=== PATIENT | female | born 1950 | race Caucasian/White ===

== ENCOUNTER 2022-09-08 21:22 | Inpatient (IN) ==
[2022-09-08] MEDS ORDERED: SODIUM CHLORIDE 0.9% 1,000 ML IV STA (21:43)
[2022-09-08 21:52] LABS: Basophils % 0.2 % (0.0-0.8); Hemoglobin 12.9 GM/DL (12.0-16.0); Immature Granulocytes % 0.5 %; Immature Granulocytes Absolute 0.09 #; Lymphocytes # 0.7 10*3/uL (1.4-4.0); Mean Corpuscular HGB Conc 33.1 GM/DL (32-36); Mean Corpuscular Volume 101.6 FL (87-102); Mean Platelet Volume 12.3 FL (9.6-12.0); Monocytes # 0.8 10*3/uL (0.11-0.8); Monocytes % 4.9 % (1.7-12.7); Neutrophils % 90.4 % (38.7-73.9); Platelet Count 142 T/CUMM (130-400); Red Blood Count 3.84 MC/CUMM (3.8-5.5); Red Cell Distribution Width 12.4 % (9.3-17.3); White Blood Count 16.4 T/CUMM (4-12)
[2022-09-08] MEDS ORDERED: ACETAMINOPHEN 325 MG SUPP RECTAL STA (22:00)
[2022-09-08] MEDS ORDERED: ACETAMINOPHEN 650 MG SUPP RECTAL STA (22:02)
[2022-09-08] MEDS ORDERED: DOXYCYCLINE HYCLATE INJ 100 MG in SODIUM CHLORIDE 0.9% 100 ML IV STA (22:03)
[2022-09-08 22:13] LABS: Albumin 3.6 G/DL (3.4-5.0); Band Neutrophils 1 % (0-10); Bilirubin,Total 0.8 MG/DL (0.20-1.00); Calcium 9.8 MG/DL (8.5-10.1); Lymphocytes 8 % (20-55); Osmolality,Calculated 296.7 MOS/KG (273-304); Potassium 3.9 MMOL/L (3.5-5.1); Total Cells Counted 100; Total Protein 7.4 G/DL (6.4-8.2)
[2022-09-08 22:14] LABS: Anisocytosis Slight; Macrocytosis Slight; Platelet Estimate Adequate
[2022-09-08 23:06] LABS: RBC,Urine 2 /HPF (0-4); Squamous Epithelial Cell,Urine Moderate /HPF (0-10)
[2022-09-08 23:09] LABS: Glucose,Urine (UA) Negative (Negative); Protein,Urine 100 mg/dL (Negative); Urine Appearance Clear (Clear); Urine Color Yellow (Yellow); Urine pH 7.5 (4.5-8.0)
[2022-09-08 23:10] LABS: Bilirubin,Urine Negative (Negative); Blood, Urine Negative (Negative); Ketones,Urine 15 mg/dL (Negative); Nitrite,Urine Negative (Negative); Urine Urobilinogen 0.2 eU/dL (<2.0)
[2022-09-08] MEDS ORDERED: hydrALAZINE 20 MG/1 ML VIAL IV PRN (23:40)
[2022-09-08] MEDS ORDERED: ONDANSETRON 4 MG/2 ML VIAL IV PRN (23:40)
[2022-09-08] MEDS ORDERED: NICOTINE 21 MG/24 HR PATCH TRANSDERM PRN (23:40)
[2022-09-08 23:56] LABS: Arterial Base Excess iSTAT 1 MMOL/L (-2.5-2.5); Arterial Bicarbonate iSTAT 23.1 MMOL/L (20-26); Arterial O2 Saturation iSTAT 91 % (95-100); Arterial PCO2 iSTAT 28 MM HG (35-48); Arterial PO2 iSTAT 54 MM HG (80-95); Arterial Total CO2 iSTAT 24 MMO/L (23-27); Arterial pH iSTAT 7.529 (7.35-7.45)
[2022-09-09] MEDS: ALBUTEROL/IPRATROPIUM 3 ML NEB RESP TX SCH ×7 (00:05→22:26)
[2022-09-09] MEDS ORDERED: ACETAMINOPHEN 650 MG SUPP RECTAL PRN (00:24)
[2022-09-09] MEDS: CLINDAMYCIN INJ 600 MG/50 ML PREMIX IV SCH ×3 (01:45→16:51)
[2022-09-09] MEDS: DEXT 5% NACL 0.45% KCL 20 MEQ 20 MEQ/1,000 ML BAG IV SCH ×2 (01:45→08:02)
[2022-09-09] MEDS ORDERED: KETOROLAC 30 MG/1 ML VIAL IV ONE (02:55)
[2022-09-09] MEDS: SODIUM CHLORIDE 0.9% 1,000 ML IV SCH ×2 (04:10→20:36)
[2022-09-09] MEDS ORDERED: SODIUM CHLORIDE 0.9% 500 ML IV ONE (05:00)
[2022-09-09 05:46] LABS: Basophils % 0.1 % (0.0-0.8); Hematocrit 34.7 VOL% (35.7-47.0); Hemoglobin 11.1 GM/DL (12.0-16.0); Immature Granulocytes % 0.5 %; Immature Granulocytes Absolute 0.05 #; Lymphocytes # 0.4 10*3/uL (1.4-4.0); Lymphocytes % 4.1 % (21.3-54.2); Mean Corpuscular Volume 106.8 FL (87-102); Mean Platelet Volume 12.6 FL (9.6-12.0); Monocytes # 0.5 10*3/uL (0.11-0.8); Monocytes % 5.1 % (1.7-12.7); Neutrophils % 90.2 % (38.7-73.9); Platelet Count 111 T/CUMM (130-400); Red Blood Count 3.25 MC/CUMM (3.8-5.5); Red Cell Distribution Width 12.4 % (9.3-17.3); White Blood Count 10.2 T/CUMM (4-12)
[2022-09-09 06:10] LABS: Lymphocytes 5 % (20-55); Total Cells Counted 100
[2022-09-09 06:11] LABS: Calcium 8.6 MG/DL (8.5-10.1); Osmolality,Calculated 301.4 MOS/KG (273-304); Potassium 3.3 MMOL/L (3.5-5.1)
[2022-09-09] MEDS: POTASSIUM CHLORIDE RIDER 10 MEQ/100 ML PREMIX IV PRN ×4 (06:45→10:17)
[2022-09-09] MEDS: PANTOPRAZOLE 40 MG VIAL IV SCH (08:35)
[2022-09-09] MEDS: HEPARIN 5,000 UNIT/1 ML VIAL SUBCUT SCH ×2 (08:36→20:35)
[2022-09-09] MEDS: IBUPROFEN 100 MG/5 ML UDCUP PO PRN (10:15)
[2022-09-09] MEDS ORDERED: DANTROLENE 20 MG VIAL IV ONE (10:16)
[2022-09-09] MEDS: CYCLOBENZAPRINE 10 MG TABLET PER TUBE SCH ×2 (10:42→20:35)
[2022-09-09] MEDS: traZODone 50 MG TABLET PER TUBE SCH ×2 (10:42→20:35)
[2022-09-09] MEDS: STALEVO PER TUBE SCH ×4 (12:06→20:35)
[2022-09-09] MEDS: OXcarbazepine 300 MG TABLET PER TUBE SCH ×2 (12:06→20:35)
[2022-09-09] MEDS: CARBIDOPA/LEVODOPA 25-100 MG TABLET PO SCH ×3 (12:09→20:35)
[2022-09-09] MEDS: DOXYCYCLINE HYCLATE INJ 100 MG in SODIUM CHLORIDE 0.9% 100 ML IV SCH (15:28)
[2022-09-10] MEDS: CLINDAMYCIN INJ 600 MG/50 ML PREMIX IV SCH ×3 (00:06→18:59)
[2022-09-10] MEDS: ALBUTEROL/IPRATROPIUM 3 ML NEB RESP TX SCH ×6 (02:56→23:55)
[2022-09-10] MEDS: DOXYCYCLINE HYCLATE INJ 100 MG in SODIUM CHLORIDE 0.9% 100 ML IV SCH ×2 (03:00→17:10)
[2022-09-10 04:30] LABS: Basophils % 0.2 % (0.0-0.8); Hematocrit 33.4 VOL% (35.7-47.0); Hemoglobin 10.7 GM/DL (12.0-16.0); Immature Granulocytes % 0.4 %; Immature Granulocytes Absolute 0.03 #; Lymphocytes # 0.7 10*3/uL (1.4-4.0); Lymphocytes % 8.9 % (21.3-54.2); Mean Corpuscular Volume 108.1 FL (87-102); Mean Platelet Volume 12.4 FL (9.6-12.0); Monocytes # 0.5 10*3/uL (0.11-0.8); Monocytes % 6.5 % (1.7-12.7); Platelet Count 93 T/CUMM (130-400); Red Blood Count 3.09 MC/CUMM (3.8-5.5); Red Cell Distribution Width 12.5 % (9.3-17.3); White Blood Count 8.3 T/CUMM (4-12)
[2022-09-10 04:41] LABS: Calcium 8.6 MG/DL (8.5-10.1); Osmolality,Calculated 298.4 MOS/KG (273-304)
[2022-09-10] MEDS: IBUPROFEN 100 MG/5 ML UDCUP PO PRN (05:45)
[2022-09-10] MEDS ORDERED: DANTROLENE 20 MG VIAL IV ONE ×2 (06:08→06:45)
[2022-09-10] MEDS: PANTOPRAZOLE 40 MG VIAL IV SCH (09:00)
[2022-09-10] MEDS: CARBIDOPA/LEVODOPA 25-100 MG TABLET PO SCH ×4 (09:01→20:23)
[2022-09-10] MEDS: OXcarbazepine 300 MG TABLET PER TUBE SCH ×2 (09:01→20:23)
[2022-09-10] MEDS: CYCLOBENZAPRINE 10 MG TABLET PER TUBE SCH ×2 (09:01→20:23)
[2022-09-10] MEDS: traZODone 50 MG TABLET PER TUBE SCH ×2 (09:01→20:23)
[2022-09-10] MEDS: HEPARIN 5,000 UNIT/1 ML VIAL SUBCUT SCH ×2 (09:02→20:23)
[2022-09-10] MEDS: SODIUM CHLORIDE 0.9% 1,000 ML IV SCH ×4 (09:25→19:41)
[2022-09-10] MEDS ORDERED: MEPERIDINE 50 MG/1 ML VIAL IV ONE (19:45)
[2022-09-11] MEDS: MORPHINE 2 MG/1 ML SYRINGE IV PRN ×8 (00:05→20:13)
[2022-09-11] MEDS: CLINDAMYCIN INJ 600 MG/50 ML PREMIX IV SCH ×3 (00:11→17:35)
[2022-09-11] MEDS ORDERED: LORazepam 2 MG/1 ML VIAL ONE (03:00)
[2022-09-11] MEDS ORDERED: LORazepam 2 MG/1 ML VIAL IV ONE (03:15)
[2022-09-11] MEDS: ALBUTEROL/IPRATROPIUM 3 ML NEB RESP TX SCH ×5 (03:28→19:10)
[2022-09-11] MEDS: DOXYCYCLINE HYCLATE INJ 100 MG in SODIUM CHLORIDE 0.9% 100 ML IV SCH ×2 (03:39→16:30)
[2022-09-11 04:23] LABS: Basophils % 0.2 % (0.0-0.8); Hematocrit 39.6 VOL% (35.7-47.0); Hemoglobin 12.2 GM/DL (12.0-16.0); Immature Granulocytes % 0.9 %; Lymphocytes # 0.4 10*3/uL (1.4-4.0); Lymphocytes % 3.8 % (21.3-54.2); Mean Corpuscular HGB Conc 30.8 GM/DL (32-36); Mean Corpuscular Volume 108.8 FL (87-102); Mean Platelet Volume 12.9 FL (9.6-12.0); Monocytes # 0.5 10*3/uL (0.11-0.8); Monocytes % 5.1 % (1.7-12.7); Platelet Count 126 T/CUMM (130-400); Red Blood Count 3.64 MC/CUMM (3.8-5.5); Red Cell Distribution Width 12.4 % (9.3-17.3); White Blood Count 10.7 T/CUMM (4-12)
[2022-09-11 04:45] LABS: Calcium 8.4 MG/DL (8.5-10.1); Osmolality,Calculated 301.3 MOS/KG (273-304); Potassium 4.5 MMOL/L (3.5-5.1)
[2022-09-11 05:12] LABS: Band Neutrophils 7 % (0-10); Lymphocytes 4 % (20-55); Total Cells Counted 100
[2022-09-11 05:13] LABS: Macrocytosis Slight; Platelet Estimate Adequate
[2022-09-11] MEDS: LORazepam 2 MG/1 ML VIAL IV PRN ×4 (05:41→20:13)
[2022-09-11] MEDS: SODIUM CHLORIDE 0.9% 1,000 ML IV SCH ×2 (07:25→20:00)
[2022-09-11] MEDS: PANTOPRAZOLE 40 MG VIAL IV SCH (08:50)
[2022-09-11] MEDS: CYCLOBENZAPRINE 10 MG TABLET PER TUBE SCH ×2 (08:55→20:13)
[2022-09-11] MEDS: OXcarbazepine 300 MG TABLET PER TUBE SCH ×2 (08:55→20:13)
[2022-09-11] MEDS: HEPARIN 5,000 UNIT/1 ML VIAL SUBCUT SCH ×2 (08:55→20:13)
[2022-09-11] MEDS: CARBIDOPA/LEVODOPA 25-100 MG TABLET PO SCH ×4 (08:55→20:13)
[2022-09-11] MEDS: traZODone 50 MG TABLET PER TUBE SCH ×2 (08:55→20:13)
[2022-09-11 18:17] VITALS: BP 87/52
[2022-09-12] MEDS: ALBUTEROL/IPRATROPIUM 3 ML NEB RESP TX SCH ×7 (00:09→23:06)
[2022-09-12] MEDS: CLINDAMYCIN INJ 600 MG/50 ML PREMIX IV SCH ×3 (00:30→16:20)
[2022-09-12] MEDS: DOXYCYCLINE HYCLATE INJ 100 MG in SODIUM CHLORIDE 0.9% 100 ML IV SCH ×2 (03:00→15:04)
[2022-09-12 04:10] LABS: Basophils # 0.1 10*3/uL (0.0-0.2); Hematocrit 35.8 VOL% (35.7-47.0); Hemoglobin 11.1 GM/DL (12.0-16.0); Immature Granulocytes % 0.8 %; Immature Granulocytes Absolute 0.07 #; Lymphocytes # 0.4 10*3/uL (1.4-4.0); Mean Corpuscular Volume 109.1 FL (87-102); Mean Platelet Volume 13.2 FL (9.6-12.0); Monocytes # 0.5 10*3/uL (0.11-0.8); Monocytes % 4.9 % (1.7-12.7); NRBC # 0.03 10*3/uL; Neutrophils % 89.3 % (38.7-73.9); Platelet Count 114 T/CUMM (130-400); Red Blood Count 3.28 MC/CUMM (3.8-5.5); Red Cell Distribution Width 12.8 % (9.3-17.3); White Blood Count 9.3 T/CUMM (4-12)
[2022-09-12 04:28] LABS: Calcium 8.5 MG/DL (8.5-10.1); Osmolality,Calculated 296.6 MOS/KG (273-304); Potassium 3.9 MMOL/L (3.5-5.1)
[2022-09-12 04:45] LABS: Band Neutrophils 7 % (0-10); Lymphocytes 4 % (20-55); Total Cells Counted 100
[2022-09-12 04:46] LABS: Macrocytosis Slight; Platelet Estimate Decreased
[2022-09-12] MEDS: MORPHINE 2 MG/1 ML SYRINGE IV PRN ×2 (06:14→18:22)
[2022-09-12] MEDS: SODIUM CHLORIDE 0.9% 1,000 ML IV SCH ×3 (06:22→18:48)
[2022-09-12] MEDS: OXcarbazepine 300 MG TABLET PER TUBE SCH ×2 (08:23→20:08)
[2022-09-12] MEDS: CYCLOBENZAPRINE 10 MG TABLET PER TUBE SCH ×2 (08:23→20:07)
[2022-09-12] MEDS: traZODone 50 MG TABLET PER TUBE SCH ×2 (08:23→20:07)
[2022-09-12] MEDS: HEPARIN 5,000 UNIT/1 ML VIAL SUBCUT SCH ×2 (08:23→20:07)
[2022-09-12] MEDS: CARBIDOPA/LEVODOPA 25-100 MG TABLET PO SCH ×4 (08:24→20:07)
[2022-09-12] MEDS: PANTOPRAZOLE 40 MG VIAL IV SCH (08:26)
[2022-09-12] MEDS: LORazepam 2 MG/1 ML VIAL IV PRN ×2 (12:43→20:08)
[2022-09-13] MEDS: CLINDAMYCIN INJ 600 MG/50 ML PREMIX IV SCH ×3 (03:11→16:53)
[2022-09-13] MEDS: SODIUM CHLORIDE 0.9% 1,000 ML IV SCH ×3 (03:22→08:59)
[2022-09-13] MEDS: MORPHINE 2 MG/1 ML SYRINGE IV PRN (03:23)
[2022-09-13] MEDS: ALBUTEROL/IPRATROPIUM 3 ML NEB RESP TX SCH ×6 (03:35→23:00)
[2022-09-13] MEDS: DOXYCYCLINE HYCLATE INJ 100 MG in SODIUM CHLORIDE 0.9% 100 ML IV SCH ×2 (03:49→15:05)
[2022-09-13 07:01] LABS: Basophils % 0.3 % (0.0-0.8); Hematocrit 32.6 VOL% (35.7-47.0); Hemoglobin 10.4 GM/DL (12.0-16.0); Immature Granulocytes % 2.4 %; Immature Granulocytes Absolute 0.22 #; Lymphocytes # 0.3 10*3/uL (1.4-4.0); Lymphocytes % 3.2 % (21.3-54.2); Mean Corpuscular HGB Conc 31.9 GM/DL (32-36); Mean Corpuscular Volume 107.6 FL (87-102); Monocytes # 0.4 10*3/uL (0.11-0.8); Monocytes % 4.4 % (1.7-12.7); NRBC # 0.03 10*3/uL; Neutrophils % 89.7 % (38.7-73.9); Platelet Count 112 T/CUMM (130-400); Red Blood Count 3.03 MC/CUMM (3.8-5.5); Red Cell Distribution Width 13.3 % (9.3-17.3); White Blood Count 9.3 T/CUMM (4-12)
[2022-09-13 07:17] LABS: Phosphorous 3.2 MG/DL (2.5-4.9)
[2022-09-13 07:22] LABS: Calcium 8.7 MG/DL (8.5-10.1); Potassium 3.5 MMOL/L (3.5-5.1)
[2022-09-13 07:27] LABS: Lymphocytes 2 % (20-55); Total Cells Counted 100
[2022-09-13] MEDS: DEXT 5% NACL 0.45% KCL 20 MEQ 20 MEQ/1,000 ML BAG IV SCH ×3 (08:43→20:25)
[2022-09-13] MEDS: ENOXAPARIN 40 MG/0.4 ML SYRINGE SUBCUT SCH (08:44)
[2022-09-13] MEDS: traZODone 50 MG TABLET PER TUBE SCH ×2 (08:45→20:24)
[2022-09-13] MEDS: OXcarbazepine 300 MG TABLET PER TUBE SCH ×2 (08:45→20:24)
[2022-09-13] MEDS: CYCLOBENZAPRINE 10 MG TABLET PER TUBE SCH ×2 (08:45→20:24)
[2022-09-13] MEDS: CARBIDOPA/LEVODOPA 25-100 MG TABLET PO SCH ×4 (08:45→20:24)
[2022-09-13] MEDS ORDERED: ZINC OXIDE PASTE 113 GM TUBE TOP PRN (13:33)
[2022-09-14] MEDS: CLINDAMYCIN INJ 600 MG/50 ML PREMIX IV SCH ×2 (00:52→09:40)
[2022-09-14 03:59] LABS: Basophils % 0.3 % (0.0-0.8); Eosinophils % 0.1 % (0.00-10.9); Hematocrit 28.6 VOL% (35.7-47.0); Immature Granulocytes % 5.8 %; Immature Granulocytes Absolute 0.54 #; Lymphocytes # 0.4 10*3/uL (1.4-4.0); Lymphocytes % 3.7 % (21.3-54.2); Mean Corpuscular HGB Conc 31.5 GM/DL (32-36); Mean Corpuscular Volume 104.8 FL (87-102); Mean Platelet Volume 12.3 FL (9.6-12.0); Monocytes # 0.3 10*3/uL (0.11-0.8); Monocytes % 3.5 % (1.7-12.7); NRBC # 0.03 10*3/uL; Neutrophils % 86.6 % (38.7-73.9); Platelet Count 110 T/CUMM (130-400); Red Blood Count 2.73 MC/CUMM (3.8-5.5); Red Cell Distribution Width 13.5 % (9.3-17.3); White Blood Count 9.4 T/CUMM (4-12)
[2022-09-14] MEDS: ALBUTEROL/IPRATROPIUM 3 ML NEB RESP TX SCH ×2 (04:00→07:00)
[2022-09-14 04:15] LABS: Calcium 8.7 MG/DL (8.5-10.1); Potassium 3.6 MMOL/L (3.5-5.1)
[2022-09-14 04:22] LABS: Lymphocytes 3 % (20-55); Total Cells Counted 100
[2022-09-14] MEDS: DOXYCYCLINE HYCLATE INJ 100 MG in SODIUM CHLORIDE 0.9% 100 ML IV SCH (04:32)
[2022-09-14] MEDS: DEXT 5% NACL 0.45% KCL 20 MEQ 20 MEQ/1,000 ML BAG IV SCH ×2 (06:24→08:10)
[2022-09-14] MEDS: CYCLOBENZAPRINE 10 MG TABLET PER TUBE SCH (09:38)
[2022-09-14] MEDS: CARBIDOPA/LEVODOPA 25-100 MG TABLET PO SCH (09:38)
[2022-09-14] MEDS: OXcarbazepine 300 MG TABLET PER TUBE SCH (09:38)
[2022-09-14] MEDS: traZODone 50 MG TABLET PER TUBE SCH (09:39)
[2022-09-14] MEDS: ENOXAPARIN 40 MG/0.4 ML SYRINGE SUBCUT SCH (10:33)
== END 2022-09-14 11:57 | disposition hospice, inpatient (51) | DRG 177 ==
LOC: EDUNIT# → EDBD → N.ED 21:22 → SUATTDRO 23:40 → N.EDINP 23:40 → N.ICU 09-09 03:13
PROVIDERS: ADMIT Internal Medicine Geriatric Medicine; ATTEND Family Medicine

== ENCOUNTER 2022-09-14 11:59 | Inpatient (IN) ==
[2022-09-14] MEDS ORDERED: ONDANSETRON 4 MG/2 ML VIAL IV PRN (12:36)
[2022-09-14] MEDS ORDERED: LORazepam 2 MG/1 ML VIAL IV PRN (12:37)
[2022-09-14] MEDS: MORPHINE 2 MG/1 ML SYRINGE IV PRN ×2 (14:49→16:08)
[2022-09-14 16:22] VITALS: BP 125/56
== END 2022-09-14 17:45 | disposition expired | DRG 951 ==
LOC: N.ICU 11:59 → SUATTDRO 11:59 → N.2E 15:59
PROVIDERS: ADMIT Internal Medicine Geriatric Medicine; ATTEND Internal Medicine